=== PATIENT | female | born 1955 | race Caucasian/White ===

== ENCOUNTER 2017-05-17 08:20 | Inpatient (IN) | payer OTHER ==
[~2017-05-17] VITALS: Ht 167.6 cm; Wt 140.2 kg
[2017-05-17] VITALS (12 sets, daily range): BP systolic 92–162; BP diastolic 51–94
[2017-05-17 09:06] LABS: EOSINOPHIL (%) 1.9 % (0-5); EOSINOPHIL COUNT 0.2 K/uL (0-0.3); HEMATOCRIT 34.6 % (36.0-46.0); IMMATURE GRANULOCYTE (%) 0.3 % (0.0-0.7); LYMPHOCYTE COUNT 1.3 K/uL (1.0-2.8); MCHC 32.1 G/DL (30.0-36.0); MCV 87.2 FL (83-99); MEAN PLAT.VOLUME 10.6 uM^3 (9.5-12.4); MONOCYTE (%) 6.3 % (3-12); MONOCYTE COUNT 0.6 K/uL (0-0.8); NEUTROPHIL (%) 76.7 % (45-76); PLATELET COUNT 242 K/uL (156-360); RBC DIS.WIDTH-CV 14.8 % (11.8-14.6); RBC DIS.WIDTH-SD 47.8 % (39-53); RED BLOOD COUNT 3.97 M/uL (3.80-5.20); WHITE BLOOD COUNT 9.2 K/uL (4.1-10.2)
[2017-05-17 09:15] LABS: INTER. NORMALIZED RATIO 1.2
[2017-05-17 09:18] LABS: PTT 31.4 SEC (25-37)
[2017-05-17 09:19] LABS: CHLORIDE 110 mEq/L (99-109); POTASSIUM 3.7 mEq/L (3.7-5.4); SODIUM 141 mEq/L (136-147)
[2017-05-17 09:20] LABS: AMYLASE 23 IU/L (1-118)
[2017-05-17 09:21] LABS: GLUCOSE 241 mg/dL (70-99)
[2017-05-17 09:22] LABS: ANION GAP 11 MEQ/L (2-14)
[2017-05-17 09:23] LABS: TOTAL BILIRUBIN 0.5 mg/dL (0.0-1.0)
[2017-05-17 09:24] LABS: SERUM ETHYL ALCOHOL < 10 mg/dL
[2017-05-17 09:25] LABS: ALKALINE PHOSPHATASE 84 IU/L (3-129); GFR ESTIMATE (CALCULATED) 23 mL/min/
[2017-05-17 09:26] LABS: UREA NITROGEN (BUN) 28 mg/dL (9-23)
[2017-05-17 09:28] LABS: TROP-I INTERPRETATION POSITIVE
[2017-05-17 09:29] LABS: LIPASE 12 U/L (1.0-51.0); TROPONIN-I 7.79 ng/mL (0.0-0.30)
[2017-05-17] MEDS ORDERED: FLUOXETINE HCL40 MG PO (09:52)
[2017-05-17] MEDS ORDERED: FUROSEMIDE40 MG PO (09:52)
[2017-05-17] MEDS ORDERED: TRESIBA FL100 UNIT/1 SC (09:53)
[2017-05-17] MEDS ORDERED: VICTOZA 2-0.6 MG/0.1 SC (09:53)
[2017-05-17] MEDS ORDERED: HUMULIN 70100 UNIT/2 SC (09:54)
[2017-05-17] MEDS ORDERED: GABAPENTIN100 MG PO (09:55)
[2017-05-17] MEDS ORDERED: CRANBERRY TABL1 EACH PO (09:55)
[2017-05-17] MEDS ORDERED: DAILY VITAMIN1 EAC4 PO (09:55)
[2017-05-17] MEDS ORDERED: ZETIA10 MG PO (09:55)
[2017-05-17] MEDS ORDERED: CRESTOR40 MG PO (09:56)
[2017-05-17] MEDS ORDERED: ASPIR-TRIN325 M1 PO (09:56)
[2017-05-17] MEDS ORDERED: AVAPRO150 MG PO (09:56)
[2017-05-17] MEDS ORDERED: LIDOCARE1 EACH TP (09:57)
[2017-05-17] MEDS ORDERED: PERCOCET 10/1 TABLET PO (09:57)
[2017-05-17 12:09] LABS: METH RESISTANT S AUREUS PCR NEGATIVE (NEGATIVE)
[2017-05-17 12:12] LABS: PROBE CHECK PASS; SPECIMEN PROCESSING CONTROL PASS
[2017-05-17 14:24] LABS: POINT-OF-CARE METER ID UU14162636
[2017-05-17] MEDS ORDERED: LASIX40 MG PO ×2 (15:17)
[2017-05-17] MEDS ORDERED: ALBUTEROL2.5 MG/3 M IH (15:20)
[2017-05-17] MEDS ORDERED: ADVAIR 250/501 DISK IH (15:20)
[2017-05-17 16:25] LABS: TROP-I INTERPRETATION POSITIVE
[2017-05-17 16:41] LABS: TROPONIN-I 217.44 ng/mL (0.0-0.30)
[2017-05-17 18:03] LABS: POINT-OF-CARE METER ID UU14162636
[2017-05-17 22:14] LABS: POINT-OF-CARE METER ID UU14162636
[2017-05-18] VITALS (17 sets, daily range): BP systolic 99–152; BP diastolic 52–82
[2017-05-18 05:19] LABS: POINT-OF-CARE METER ID UU14162636
[2017-05-18 06:07] LABS: EOSINOPHIL (%) 1.2 % (0-5); EOSINOPHIL COUNT 0.1 K/uL (0-0.3); IMMATURE GRANULOCYTE (%) 0.5 % (0.0-0.7); IMMATURE GRANULOCYTE COUNT 0.1 K/uL; LYMPHOCYTE COUNT 1.5 K/uL (1.0-2.8); MCH 28.1 PG (29.0-34.0); MCHC 31.8 G/DL (30.0-36.0); MCV 88.3 FL (83-99); MEAN PLAT.VOLUME 11.1 uM^3 (9.5-12.4); MONOCYTE (%) 8.1 % (3-12); MONOCYTE COUNT 0.8 K/uL (0-0.8); NEUTROPHIL (%) 74.4 % (45-76); PLATELET COUNT 230 K/uL (156-360); RBC DIS.WIDTH-CV 15.2 % (11.8-14.6); RED BLOOD COUNT 3.17 M/uL (3.80-5.20); WHITE BLOOD COUNT 9.5 K/uL (4.1-10.2)
[2017-05-18 07:10] LABS: TROP-I INTERPRETATION POSITIVE; TROPONIN-I 160.53 ng/mL (0.0-0.30)
[2017-05-18 07:29] LABS: ALKALINE PHOSPHATASE 63 IU/L (3-129); ANION GAP 11 MEQ/L (2-14); CHLORIDE 111 MEQ/L (99-109); GFR ESTIMATE (CALCULATED) 18 mL/min/; GLUCOSE 154 mg/dL (70-99); HDL CHOLESTEROL 34 MG/DL (Desirable>=50); LDL CHOLESTEROL 123 mg/dL (Desirable<100); NON-HDL CHOLESTEROL 158 mg/dL (Desirable<160); POTASSIUM 4.3 MEQ/L (3.7-5.4); SAMPLE HEMOLYSIS CHECK 0; SAMPLE ICTERIC CHECK 0; SAMPLE LIPEMIA CHECK 0; SODIUM 140 MEQ/L (136-147); TOTAL BILIRUBIN 0.4 MG/DL (0.0-1.0); TOTAL CHOLESTEROL 192 mg/dL (Desirable<200); TRIGLYCERIDES 175 MG/DL (Normal: <150); UREA NITROGEN (BUN) 35 mg/dL (9-23)
[2017-05-18 07:39] LABS: Estimated Average Glucose 180 mg/dL (70-123); HEMOGLOBIN A1c (GLYCOHEMOGLOB) 7.9 % HGB (Below 5.7)
[2017-05-18 12:27] LABS: POINT-OF-CARE METER ID UU14314083
[2017-05-18 18:15] LABS: POINT-OF-CARE METER ID UU14314082
[2017-05-18 21:35] LABS: POINT-OF-CARE METER ID UU14314082
[2017-05-19] VITALS (13 sets, daily range): BP systolic 91–126; BP diastolic 52–84
[2017-05-19 07:02] LABS: EOSINOPHIL (%) 1.6 % (0-5); EOSINOPHIL COUNT 0.2 K/uL (0-0.3); HEMATOCRIT 31.8 % (36.0-46.0); IMMATURE GRANULOCYTE (%) 0.6 % (0.0-0.7); IMMATURE GRANULOCYTE COUNT 0.1 K/uL; INSTRUMENT ABS NEUTROPHIL CT 7.3 K/uL; LYMPHOCYTE COUNT 1.6 K/uL (1.0-2.8); MCH 27.2 PG (29.0-34.0); MCHC 30.2 G/DL (30.0-36.0); MCV 90.1 FL (83-99); MEAN PLAT.VOLUME 10.8 uM^3 (9.5-12.4); MONOCYTE (%) 8.3 % (3-12); MONOCYTE COUNT 0.8 K/uL (0-0.8); NEUTROPHIL (%) 73.3 % (45-76); NEUTROPHIL COUNT 7.3 K/uL (1.8-6.4); PLATELET COUNT 216 K/uL (156-360); RBC DIS.WIDTH-CV 15.6 % (11.8-14.6); RBC DIS.WIDTH-SD 51.4 % (39-53); RED BLOOD COUNT 3.53 M/uL (3.80-5.20)
[2017-05-19 07:25] LABS: ANION GAP 11 MEQ/L (2-14); CHLORIDE 112 MEQ/L (99-109); GFR ESTIMATE (CALCULATED) 13 mL/min/; POTASSIUM 4.4 MEQ/L (3.7-5.4); SAMPLE HEMOLYSIS CHECK 0; SAMPLE ICTERIC CHECK 0; SAMPLE LIPEMIA CHECK 0; SODIUM 140 MEQ/L (136-147); UREA NITROGEN (BUN) 45 mg/dL (9-23)
[2017-05-19 07:28] LABS: GLUCOSE 101 mg/dL (70-99)
[2017-05-19 08:12] LABS: POINT-OF-CARE METER ID UU14208751
[2017-05-19 12:11] LABS: POINT-OF-CARE METER ID UU14208751
[2017-05-19 16:04] LABS: POINT-OF-CARE METER ID UU14314083
[2017-05-19 18:37] LABS: ADD MIUA? YES; BILIRUBIN NEGATIVE; BLOOD MODERATE; COLOR YELLOW ((YELLOW)); GLUCOSE (STRIP) >=500; KETONES NEGATIVE; LEUKOCYTES NEGATIVE; NITRITE NEGATIVE; PROTEIN (STRIP) >=500; SPECIFIC GRAVITY 1.018 (1.000-1.030); UROBILINOGEN 0.2 MG/DL (0.2-1.0)
[2017-05-19 19:45] LABS: BACTERIA RARE /HPF; EPITHELIAL CELLS 1+ /HPF; MUCUS TRACE /LPF; RED BLOOD CELLS 0-5 /HPF (0-5); UNCLASSIFIED CASTS 0-5 /LPF
[2017-05-19 21:47] LABS: POINT-OF-CARE METER ID UU13113803
[2017-05-20 05:36] LABS: BASOPHIL COUNT 0.1 K/uL (0-0.1); EOSINOPHIL (%) 2.4 % (0-5); EOSINOPHIL COUNT 0.3 K/uL (0-0.3); HEMATOCRIT 29.2 % (36.0-46.0); IMMATURE GRANULOCYTE COUNT 0.1 K/uL; INSTRUMENT ABS NEUTROPHIL CT 7.4 K/uL; LYMPHOCYTE COUNT 1.9 K/uL (1.0-2.8); MCH 27.4 PG (29.0-34.0); MCHC 30.8 G/DL (30.0-36.0); MEAN PLAT.VOLUME 10.8 uM^3 (9.5-12.4); MONOCYTE (%) 7.2 % (3-12); MONOCYTE COUNT 0.8 K/uL (0-0.8); NEUTROPHIL (%) 70.8 % (45-76); NEUTROPHIL COUNT 7.4 K/uL (1.8-6.4); PLATELET COUNT 225 K/uL (156-360); RBC DIS.WIDTH-CV 15.5 % (11.8-14.6); RBC DIS.WIDTH-SD 50.5 % (39-53); RED BLOOD COUNT 3.28 M/uL (3.80-5.20); WHITE BLOOD COUNT 10.5 K/uL (4.1-10.2)
[2017-05-20 06:20] LABS: ANION GAP 11 MEQ/L (2-14); CHLORIDE 111 MEQ/L (99-109); GFR ESTIMATE (CALCULATED) 11 mL/min/; GLUCOSE 130 mg/dL (70-99); POTASSIUM 4.5 MEQ/L (3.7-5.4); SAMPLE HEMOLYSIS CHECK 0; SAMPLE ICTERIC CHECK 0; SAMPLE LIPEMIA CHECK 0; SODIUM 140 MEQ/L (136-147); UREA NITROGEN (BUN) 51 mg/dL (9-23)
[2017-05-20 08:00] VITALS: BP 104/54
[2017-05-20 10:55] LABS: IMM.RETIC FRACTION 26.6 % (3-19); RETIC HGB EQUIVALENT 28.3 (28-36); RETICULOCYTE COUNT 1.8 % (0.5-1.8)
[2017-05-20 11:13] LABS: IRON 18 MCG/DL (35-150)
[2017-05-20 11:31] LABS: FERRITIN 255 NG/ML (10-291)
[2017-05-20 12:00] VITALS: BP 133/74
[2017-05-20 12:31] LABS: POINT-OF-CARE METER ID UU14162636
[2017-05-20 16:00] VITALS: BP 138/67
[2017-05-20 17:51] LABS: POINT-OF-CARE METER ID UU14162636
[2017-05-20 20:00] VITALS: BP 147/78
[2017-05-20 22:21] LABS: POINT-OF-CARE METER ID UU14162636
[2017-05-21 04:00] VITALS: BP 106/56
[2017-05-21 05:32] LABS: EOSINOPHIL (%) 2.6 % (0-5); EOSINOPHIL COUNT 0.3 K/uL (0-0.3); IMMATURE GRANULOCYTE (%) 0.4 % (0.0-0.7); INSTRUMENT ABS NEUTROPHIL CT 6.8 K/uL; LYMPHOCYTE COUNT 1.8 K/uL (1.0-2.8); MCH 26.7 PG (29.0-34.0); MCHC 30.3 G/DL (30.0-36.0); MCV 88.1 FL (83-99); MEAN PLAT.VOLUME 10.8 uM^3 (9.5-12.4); MONOCYTE (%) 8.7 % (3-12); MONOCYTE COUNT 0.9 K/uL (0-0.8); NEUTROPHIL (%) 69.6 % (45-76); NEUTROPHIL COUNT 6.8 K/uL (1.8-6.4); PLATELET COUNT 232 K/uL (156-360); RBC DIS.WIDTH-CV 15.3 % (11.8-14.6); RBC DIS.WIDTH-SD 49.7 % (39-53); RED BLOOD COUNT 3.29 M/uL (3.80-5.20); WHITE BLOOD COUNT 9.7 K/uL (4.1-10.2)
[2017-05-21 06:11] LABS: ALKALINE PHOSPHATASE 67 IU/L (3-129); ANION GAP 10 MEQ/L (2-14); CHLORIDE 114 MEQ/L (99-109); GFR ESTIMATE (CALCULATED) 12 mL/min/; GLUCOSE 102 mg/dL (70-99); POTASSIUM 4.2 MEQ/L (3.7-5.4); SAMPLE HEMOLYSIS CHECK 0; SAMPLE ICTERIC CHECK 0; SAMPLE LIPEMIA CHECK 0; SODIUM 142 MEQ/L (136-147); TOTAL BILIRUBIN 0.3 MG/DL (0.0-1.0); UREA NITROGEN (BUN) 54 mg/dL (9-23)
[2017-05-21 08:00] VITALS: BP 106/60
[2017-05-21 09:07] LABS: POINT-OF-CARE METER ID UU13113803
[2017-05-21 12:00] VITALS: BP 126/67
[2017-05-21 12:11] LABS: POINT-OF-CARE METER ID UU13113803
[2017-05-21 16:00] VITALS: BP 135/74
[2017-05-21 16:34] LABS: POINT-OF-CARE METER ID UU13113803
[2017-05-21 20:00] VITALS: BP 153/75
[2017-05-21 21:42] LABS: POINT-OF-CARE METER ID UU14174217
[2017-05-22] VITALS: BP 133/59
[2017-05-22 04:00] VITALS: BP 142/72
[2017-05-22 05:21] LABS: POINT-OF-CARE METER ID UU14314083
[2017-05-22 05:55] LABS: EOSINOPHIL (%) 3.2 % (0-5); EOSINOPHIL COUNT 0.3 K/uL (0-0.3); HEMATOCRIT 29.4 % (36.0-46.0); IMMATURE GRANULOCYTE (%) 0.5 % (0.0-0.7); IMMATURE GRANULOCYTE COUNT 0.1 K/uL; INSTRUMENT ABS NEUTROPHIL CT 6.9 K/uL; LYMPHOCYTE COUNT 1.5 K/uL (1.0-2.8); MCH 26.8 PG (29.0-34.0); MCV 86.7 FL (83-99); MONOCYTE (%) 7.5 % (3-12); MONOCYTE COUNT 0.7 K/uL (0-0.8); NEUTROPHIL (%) 72.9 % (45-76); NEUTROPHIL COUNT 6.9 K/uL (1.8-6.4); PLATELET COUNT 274 K/uL (156-360); RBC DIS.WIDTH-CV 15.2 % (11.8-14.6); RBC DIS.WIDTH-SD 48.8 % (39-53); RED BLOOD COUNT 3.39 M/uL (3.80-5.20); WHITE BLOOD COUNT 9.5 K/uL (4.1-10.2)
[2017-05-22 06:35] LABS: ALKALINE PHOSPHATASE 75 IU/L (3-129); ANION GAP 10 MEQ/L (2-14); CHLORIDE 112 MEQ/L (99-109); GFR ESTIMATE (CALCULATED) 14 mL/min/; GLUCOSE 151 mg/dL (70-99); POTASSIUM 4.3 MEQ/L (3.7-5.4); SAMPLE HEMOLYSIS CHECK 0; SAMPLE ICTERIC CHECK 0; SAMPLE LIPEMIA CHECK 0; SODIUM 142 MEQ/L (136-147); UREA NITROGEN (BUN) 56 mg/dL (9-23)
[2017-05-22 06:39] LABS: TOTAL BILIRUBIN 0.4 MG/DL (0.0-1.0)
[2017-05-22 06:41] LABS: POINT-OF-CARE METER ID UU14314083
[2017-05-22 08:00] VITALS: BP 118/69
[2017-05-22 12:00] VITALS: BP 115/71
[2017-05-22 12:56] LABS: POINT-OF-CARE METER ID UU13113803
[2017-05-22 16:00] VITALS: BP 133/70
[2017-05-22 17:18] LABS: POINT-OF-CARE METER ID UU14174217
[2017-05-22 19:20] VITALS: BP 135/81
[2017-05-22 20:48] LABS: POINT-OF-CARE METER ID UU13113781; POINT-OF-CARE USER ID ENVMNS
[2017-05-23 00:10] VITALS: BP 109/59
[2017-05-23 04:31] VITALS: BP 108/54
[2017-05-23 05:27] LABS: EOSINOPHIL (%) 2.8 % (0-5); EOSINOPHIL COUNT 0.2 K/uL (0-0.3); IMMATURE GRANULOCYTE (%) 0.6 % (0.0-0.7); IMMATURE GRANULOCYTE COUNT 0.1 K/uL; INSTRUMENT ABS NEUTROPHIL CT 6.2 K/uL; LYMPHOCYTE COUNT 1.3 K/uL (1.0-2.8); MCH 27.7 PG (29.0-34.0); MCHC 32.2 G/DL (30.0-36.0); MEAN PLAT.VOLUME 10.8 uM^3 (9.5-12.4); MONOCYTE (%) 8.3 % (3-12); MONOCYTE COUNT 0.7 K/uL (0-0.8); NEUTROPHIL (%) 72.3 % (45-76); NEUTROPHIL COUNT 6.2 K/uL (1.8-6.4); PLATELET COUNT 248 K/uL (156-360); RBC DIS.WIDTH-CV 15.2 % (11.8-14.6); RBC DIS.WIDTH-SD 47.8 % (39-53); RED BLOOD COUNT 3.14 M/uL (3.80-5.20); WHITE BLOOD COUNT 8.5 K/uL (4.1-10.2)
[2017-05-23 06:11] LABS: ALKALINE PHOSPHATASE 68 IU/L (3-129); ANION GAP 9 MEQ/L (2-14); CHLORIDE 113 MEQ/L (99-109); GFR ESTIMATE (CALCULATED) 15 mL/min/; GLUCOSE 131 mg/dL (70-99); POTASSIUM 4.2 MEQ/L (3.7-5.4); SAMPLE HEMOLYSIS CHECK 0; SAMPLE ICTERIC CHECK 0; SAMPLE LIPEMIA CHECK 0; SODIUM 144 MEQ/L (136-147); TOTAL BILIRUBIN 0.4 MG/DL (0.0-1.0); UREA NITROGEN (BUN) 53 mg/dL (9-23)
[2017-05-23 07:54] VITALS: BP 130/59
[2017-05-23 08:16] LABS: POINT-OF-CARE METER ID UU13113781
[2017-05-23 10:25] VITALS: BP 100/63
[2017-05-23 11:26] LABS: POINT-OF-CARE METER ID UU13113781
[2017-05-23] MEDS ORDERED: ASPIR-LOW81 MG PO (12:25)
[2017-05-23] MEDS ORDERED: LOPRESSOR25 MG PO (12:30)
[2017-05-23] MEDS ORDERED: CYANOCOBALAM1000 MCG PO (12:30)
[2017-05-23] MEDS ORDERED: BRILINTA90 MG PO (12:30)
[2017-05-23] MEDS ORDERED: NOVOLOG PE100 UNITS/ SC (12:30)
[2017-05-23] MEDS ORDERED: CALCIUM ACETAT667 MG PO (12:30)
== END 2017-05-23 13:41 | disposition home or self-care (01) | DRG 247 ==
LOC: EME 08:20 → CATH 08:57 → ENRESERV 09:07 → 4WEST 10:50 → ENRESERV 05-19 09:35 → 4EAST 05-22 17:24 → CANRESERV 05-23 10:06 → ENRESERV 05-23 10:06 → 4EAST 05-23 13:41
PROVIDERS: Hospitalist; Internal Medicine Cardiovascular Disease; Internal Medicine Nephrology; Nurse Practitioner Family
DX: I21.19 ST elevation (STEMI) myocardial infarction involving other coronary artery of inferior wall (principal); N17.9 Acute kidney failure, unspecified; N18.4 Chronic kidney disease, stage 4 (severe); T50.8X5A Adverse effect of diagnostic agents, initial encounter; I25.10 Atherosclerotic heart disease of native coronary artery without angina pectoris; E10.622 Type 1 diabetes mellitus with other skin ulcer; E10.22 Type 1 diabetes mellitus with diabetic chronic kidney disease; E66.01 Morbid (severe) obesity due to excess calories; Z68.43 Body mass index [BMI] 50.0-59.9, adult; E10.21 Type 1 diabetes mellitus with diabetic nephropathy; L97.919 Non-pressure chronic ulcer of unspecified part of right lower leg with unspecified severity; E78.5 Hyperlipidemia, unspecified; I13.10 Hypertensive heart and chronic kidney disease without heart failure, with stage 1 through stage 4 chronic kidney disease, or unspecified chronic kidney disease; E10.40 Type 1 diabetes mellitus with diabetic neuropathy, unspecified; D64.9 Anemia, unspecified; N14.1 Nephropathy induced by other drugs, medicaments and biological substances; N87.9 Dysplasia of cervix uteri, unspecified; Z79.4 Long term (current) use of insulin; Z99.2 Dependence on renal dialysis; Z79.899 Other long term (current) drug therapy; Z79.82 Long term (current) use of aspirin; Z86.73 Personal history of transient ischemic attack (TIA), and cerebral infarction without residual deficits; I25.2 Old myocardial infarction
CPT/HCPCS: 71010; 76770; 80048; 80053; 80061; 80076; 81003; 82150; 82272; 82607; 82728; 82746; 82948; 83036; 83540; 83690; 84100; 84466; 84484; 85025; 85027; 85347; 85610; 85730; 86850; 86900; 86901; 87502; 87641; 90832; 93005; 93306; 93970; 97530 GO; 99202; 99281; 99285; C1769; C1874; C1887; G0480; J0153; J1644; J1756; J1815; J1940; J2250; J2270; J2405; J3010; J7030; J7050